=== PATIENT | female | born 1950 | race Caucasian/White ===

== ENCOUNTER 2022-03-16 12:41 | Emergency (ER) | payer OTHER ==
[~2022-03-16] VITALS: Ht 167.6 cm; Wt 65.8 kg
[2022-03-16] MEDS ORDERED: IBU600 M1 PO (15:46)
[2022-03-16] MEDS ORDERED: OXAYDO5 M1 PO (15:46)
[2022-03-16] MEDS ORDERED: ATOR20 PO (15:53)
[2022-03-16] MEDS ORDERED: LISI5 PO (15:53)
[2022-03-16] MEDS ORDERED: INGREZZA40 MG PO (15:53)
== END 2022-03-16 16:20 | disposition home or self-care (01) ==
LOC: ER 12:41
DX: S42.212A Unspecified displaced fracture of surgical neck of left humerus, initial encounter for closed fracture (principal); W01.0XXA Fall on same level from slipping, tripping and stumbling without subsequent striking against object, initial encounter; I10 Essential (primary) hypertension; E78.5 Hyperlipidemia, unspecified; F32.A Depression, unspecified
CPT/HCPCS: 73030; A9270